=== PATIENT | female | born 2000 | race Hispanic/Latino ===

== ENCOUNTER 2021-09-22 13:39 | Emergency (ER) | payer OTHER | END 2021-09-22 16:43 | disposition home or self-care (01) | LOC: ERS 13:39 | DX: R05.9 Cough, unspecified (principal); J45.909 Unspecified asthma, uncomplicated; F17.290 Nicotine dependence, other tobacco product, uncomplicated; Z79.899 Other long term (current) drug therapy | CPT/HCPCS: 71045 ==

== ENCOUNTER 2022-08-13 09:13 | Emergency (ER) | payer OTHER | END 2022-08-13 12:04 | disposition home or self-care (01) | LOC: ERS 09:13 | DX: H10.9 Unspecified conjunctivitis (principal); F17.290 Nicotine dependence, other tobacco product, uncomplicated | CPT/HCPCS: 99282 ==

== ENCOUNTER 2022-11-09 13:53 | Emergency (ER) | payer OTHER ==
[2022-11-09] MEDS ORDERED: Ketorolac Tromethamine 30 MG/ML VIAL ONE (14:28)
[2022-11-09] MEDS ORDERED: Ondansetron ODT 4 MG TAB ONE (14:28)
== END 2022-11-09 15:38 | disposition home or self-care (01) ==
LOC: ERS 13:53
DX: S06.0X1A Concussion with loss of consciousness of 30 minutes or less, initial encounter (principal); S13.4XXA Sprain of ligaments of cervical spine, initial encounter; F17.290 Nicotine dependence, other tobacco product, uncomplicated; W18.30XA Fall on same level, unspecified, initial encounter
CPT/HCPCS: 70450; 72125; 96372; J1885; Q0162

== ENCOUNTER 2022-11-13 03:53 | Emergency (ER) | payer OTHER ==
[2022-11-13] MEDS ORDERED: Ondansetron PF 4 MG/2 ML Vial ONE (04:19)
[2022-11-13] MEDS ORDERED: Ondansetron ODT 4 MG TAB ONE (04:39)
[2022-11-13] MEDS ORDERED: Ondansetron ODT 8 MG TAB ONE (04:39)
[2022-11-13] MEDS ORDERED: Acetaminophen 500 MG TAB ONE (05:31)
[2022-11-13] MEDS ORDERED: Ketorolac Tromethamine 30 MG/ML VIAL ONE (05:31)
== END 2022-11-13 05:53 | disposition home or self-care (01) ==
LOC: ERS 03:53
DX: R51.9 Headache, unspecified (principal); F17.290 Nicotine dependence, other tobacco product, uncomplicated
CPT/HCPCS: 96372; 99283; J1885; J2405; Q0162

== ENCOUNTER 2023-06-10 10:48 | Emergency (ER) | payer OTHER ==
[2023-06-10] MEDS ORDERED: Ibuprofen 200 MG TAB ONE (12:05)
[2023-06-10] MEDS ORDERED: Acetaminophen 500 MG TAB ONE (12:05)
== END 2023-06-10 12:39 | disposition home or self-care (01) ==
LOC: ERS 10:48
DX: S93.401A Sprain of unspecified ligament of right ankle, initial encounter (principal); F17.290 Nicotine dependence, other tobacco product, uncomplicated; W13.0XXA Fall from, out of or through balcony, initial encounter